=== PATIENT | female | born 1970 | race Caucasian/White ===

== ENCOUNTER → 2019-09-02 11:03 | Outpatient (CLI) | payer OTHER, SELFPAY ==
--- NOTE | 2019-09-01 11:17 | HP.PCM_ITS ---
History and Physical Date of Admission: 09/02/19 HISTORY AND PHYSICAL - BREAST COMPLAINT ? Luiza Zepeda 1970 ? ? REFERRING PHYSICIAN: ??Jeffry Posadas MD ? CHIEF COMPLAINT:???Abnormal right breast imaging ? HPI: The patient is a 49 year old female with a complaint of?an abnormal mammogram. ?The patient had a mammogram on August 14, 2019?which demonstrated: ? IMPRESSION: SUSPICIOUS FINDING - BIOPSY SHOULD BE CONSIDERED The grouped pleomorphic calcifications in the right breast are suspicious of malignancy. ?A stereotactic biopsy is recommended. ? There are a grouped pleomorphic calcifications in the right breast at 11 o'clock posterior depth. No other significant masses or calcifications are seen in the breast. ? The patient denies a history of breast masses. ?She does??perform a self breast exam routinely. ?She notes no skin changes. ?She denies nipple discharge. ?She notes no axillary masses. ?She notes no family history of breast problems. ?She notes no significant breast trauma or breast difficulties in the past. ? I performed a left side Stereotactic guided core biopsy for her abnormal mammogram on September 02, 2013. ?Biopsy was somewhat challenging due to the fact that the microcalcifications very superficial, the compression of the breast prevented advancing of the needle fully into the breast resulting in poor sampling and multiple skin biopsies. ?I was however confident needle was well centered on the area of the abnormality. ? ? The pathology returned as: ? ?Normal-appearing breast and skin with no atypical findings but also no microcalcifications ? ? ? The patient is being seen by me today at the request of ?for my opinion and advice regarding abnormal breast imaging-right breast microcalcifications.? ? PAST MEDICAL HISTORY PAST MEDICAL HISTORY Diagnosis Date ? Bunionette of left foot 03/09/2018 ? Bunionette of right foot 03/09/2018 ? Hallux valgus (acquired), unspecified foot 03/09/2018 ? Papanicolaou smear of cervix with atypical squamous cells of undetermined significance (ASC-US) 1999 ? Paps since normal ? Tinea unguium 03/09/2018 ? ? PAST SURGICAL HISTORY PAST SURGICAL HISTORY Procedure Laterality Date ? BX BREAST PERC VACUUM/ROTN ? 09/02/13 ? left breast ? PAST SURGICAL HISTORY OF ? ? ? WISDOM TEETH ? ? CURRENT MEDICATIONS Current Outpatient Medications Medication Sig Dispense Refill ? DAILY MULTIVITAMIN TAB Take one(1) tablet daily. ? 0 ? No current facility-administered medications for this visit.? ? ALLERGIES:?Amoxicillin ? PERSONAL HISTORY:? SOCIAL HISTORY Social History ? Tobacco Use ? Smoking status: Never Smoker ? Smokeless tobacco: Never Used Substance Use Topics ? Alcohol use: Yes ? ? Alcohol/week: 17.5 standard drinks ? ? Types: 7 Glasses of Wine (5oz) per week ? ? Comment: moderately ? Drug use: No ? FAMILY HISTORY:? FAMILY HISTORY FAMILY HISTORY Problem Relation Age of Onset ? Hypertension Mother ? ? Cancer Father ?Prostate Ca ? Stroke Maternal Grandmother ? ? Hypertension Maternal Grandmother ? ? Cancer Maternal Grandmother ?SKIN ? Heart Paternal Grandfather ? ? Diabetes Paternal Grandmother ? ? REVIEW OF SYMPTOMS: ??The review of systems data was entered by the nurse and reviewed by me ? Nursing Notes: Jordan Urena ?08/27/2019 ?4:23 PM ?Signed REVIEW OF SYSTEMS: ?General:???The patient denies fatigue, denies weight loss, denies weight gain, denies feeling hot, and denies feelings of cold. ?Eyes: ?The patient denies glaucoma, denies eye injury/surgery, does not wear glasses or contacts. ?Ear/Nose/Throat: ?The patient denies allergies, denies hayfever, denies ear infections, and denies bloody noses. ?Cardiovascular: ?The patient denies chest pain, denies heart disease, denies high blood pressure,denies cardiac stent, denies prior heart attack, denies irregular heart beat, denies high cholesterol, ?denies poor circulation, denies heart failure, other cardiac issues, denies claudication, denies cold feet, denies peripheral arterial stent. ?Respiratory: ?The patient denies tuberculosis, denies pneumonia, denies frequent cough, denies pulmonary embolism, denies shortness of breath, and denies coughing up blood. ?Gastrointestinal: ?The patient denies difficulty swallowing, denies acid reflux, denies ulcers, denies vomiting, denies jaundice/hepatitis, denies gallbladder problems, denies black or tarry stools, denies hemorrhoids, denies bleeding from rectum, denies diverticulitis, denies constipation, denies d iarrhea, denies loss of stool control, and denies hernias. ?Kidney/Bladder: ?The patient denies kidney stones, denies urine infections, and denies bloody urine. ?Skin: ?The patient denies a history of skin cancer, denies bleeding/changing moles, and denies a history of skin rash. ?Neurologic: ?The patient denies a history of epilepsy/convulsions, denies headaches, denies head/spinal injuries, and denies stroke/TIA. ?Psychiatric: ?The patient denies psychiatric medications, denies depression, and denies voices, denies substance abuse. ?Endocrine: ?The patient denies thyroid disorders, denies diabetes, and denies hormonal problems. ?Hematologic: ?The patient denies a history of bruising, denies bleeding, and denies anemia, denies blood clots. ?Infections: ?The patient denies a history of measles and mumps, denies rheumatic fever, and denies sexually transmitted diseases. ?Musculoskeletal: ?The patient denies back pain/injury, denies back problems, denies sciatica, denies knee/foot trouble, denies arthritis, or denies gout. ? ? When was patient's last Mammogram screening? 08-14-2019 ? ?Last Colonoscopy: ?NA ? Jordan Urena ? PHYSICAL EXAMINATION: ? General: ?The patient is 49 year old female, well nourished, well hydrated in no acute distress. ?The patient is oriented to time, place, and person. ? VITALS:?Blood pressure 102/54, pulse 71, temperature 36.2 ?C (97.2 ?F), temperature source Temporal Artery, resp. rate 14, height 172.7 cm (5' 8), weight 68.9 kg (152 lb), SpO2 100 %.?Body mass index is 23.11 kg/m?.? ? HEENT: ?Normal cephalic, ataumatic, pupils are equally round, sclera are anicteric, mucous membranes are moist, oropharynx is clear. ?Neck has no masses, asymmetry or lymphadenopathy. ?Thyroid is unremarkable. ? Respiratory: ?Clear to auscultation and percussion. ?Normal respiratory excursion and pattern. ? Cardiac: ?Examination is regular rate and rhythm. ? ? ? Breast: ?Visual inspection reveals no retractions, nipple inversion, or skin changes. ?Palpation of the right breast reveals no dominant or suspicious masses, but multiple benign-feeling nodules. ?Palpation of the left breast reveals no dominant or suspicious masses, but multiple benign-feeling nodules. ?Axillary exam demonstrates no suspicious masses in either the left or right axilla. ?There is no nipple discharge expressed from either the left or right breast. ? LABORATORY VALUES: As Noted ? RADIOLOGIC STUDIES: ?As Noted ? Assessment ? IMPRESSION:?abnormal breast imaging-right breast microcalcifications ? PLAN:??I plan to perform a?stereotactic biopsy of the right breast. ?The planned surgical procedure was discussed extensively with the patient. ?The risks, benefits, anticipated outcomes and possible complications were mentioned. ?My staff has also explained the procedure in understandable terms and the patient was given the option to take printed material concerning the planned procedure. ?The patient had the opportunity to ask questions concerning the planned procedure. ?The patient freely consents to the planned procedure. ? Diagnoses:?(R92.8) Abnormal finding on breast imaging ?(primary encounter diagnosis) ? Return to Clinic: The patient is instructed to follow-up with me?after the testing has been completed. ? Jeffry Posadas MD
--- NOTE | 2019-09-14 12:47 | PCM.OPRPT ---
Report of Operation Date of Procedure: 09/02/19 Pre-Operative Diagnosis: microcalcifications right breast Post-Operative Diagnosis: aborted biopsy right breast neck or calcifications Surgery/Procedure Performed:: aborted biopsy right breast consultation Specimen's removed: none Description of Procedure: The patient was brought to the stereotactic suite and informed of the plan course of events. The right breast was positioned in the CC approach on the [place] stereotactic table. Mammographic image demonstrated the area of abnormalityto be vague without clear clustering of the calcifications. Nothing the breast to multiple images failed to yield a clustered grouping in addition the calcifications were very superficial and the breast compressed very thin. Given these findings the stereotactic biopsy was aborted.
== END ==
PROVIDERS: Referring Provider Surgery; Visit Provider Surgery
DX: Z53.8 Procedure and treatment not carried out for other reasons (principal); R92.0 Mammographic microcalcification found on diagnostic imaging of breast
CPT/HCPCS: 19081

== ENCOUNTER → 2022-11-24 | Outpatient (CLI) | payer OTHER, SELFPAY ==
[2022-11-24 14:04] LABS: Free T3 2.5 pg/mL (2.18-3.98); T4 Free Direct 0.83 ng/dL (0.76-1.46); Thyroid Stim Hormone (TSH) 2.84 uIU/mL (0.358-3.74)
== END | disposition home or self-care (01) ==
PROVIDERS: PCP Student in an Organized Health Care Education/Training Program; Referring Provider Student in an Organized Health Care Education/Training Program; Visit Provider Student in an Organized Health Care Education/Training Program
DX: E03.9 Hypothyroidism, unspecified (principal)
CPT/HCPCS: 36415; 84439; 84443; 84481

== ENCOUNTER → 2023-10-25 | Outpatient (CLI) | payer OTHER, SELFPAY ==
--- NOTE | 2023-10-25 13:51 | US_ITS ---
INDICATION: THYROID NODULE EXAMINATION: Ultrasound US Thyroid (eg thyroid, parathyroid, parotid) TECHNIQUE: Denny scale and color doppler imaging was performed of the thyroid gland. COMPARISON: FINDINGS: RIGHT THYROID LOBE: 5.1 x 1.7 x 1.7 cm. Heterogeneous echotexture with increased vascularity. [No thyroid nodules are present. LEFT THYROID LOBE: 4.9 x 1.6 x 1.6 cm. Heterogeneous echotexture with increased vascularity. [No thyroid nodules are present. ISTHMUS: 2 mm. No thyroid nodules are present. US/Thyroid IMPRESSION: Heterogeneous thyroid lobes without discrete lesion. Electronically Signed: Nehemias Mchugh DO at 16:25 EST Reading Location ID and State: [facility] / [place] Tel [phone], Service support ,
--- OUTSIDE RECORDS SUMMARY | 2023-10-25 14:36 | XMS RPT_ITS | CCD ---
Author Name Unknown Address [address] [place] [address] Organization [facility] Care Team Providers Care Project Construction Assistant Manager Name Role Phone Unavailable Primary Care Provider Unavailabl e HORN, SOUMYA DPM Primary Care Unavailable HORN, SOUMYA DPM Attending Unavailable HORN, SOUMYA DPM Admitting Unavailable ROSE MARIE BRANDON DO Consulting Unavailable PROVIDER, UNKNOWN Consulting Unavailable PROVIDER, UNKNOWN Consulting Unavailable ROSE MARIE BRANDON DO Consulting Unavailable UNGERER, NANCI BUSINESS DEVELOPMENT INTERN Primary Care Unavailable UNGERER, NANCI BUSINESS DEVELOPMENT INTERN Attending Unavailable UNGERER, NANCI BUSINESS DEVELOPMENT INTERN Admitting Unavailable PROVIDER, UNKNOWN Consulting Unavailable PROVIDER, UNKNOWN Consulting Unavailable HORN, SOUMYA DPM Admitting Unavailable HORN, SOUMYA DPM Primary Care Unavailable HORN, SOUMYA DPM Attending Unavailable ROSE MARIE BRANDON DO Consulting Unavailable PROVIDER, UNKNOWN Consulting Unavailable PROVIDER, UNKNOWN Consulting Unavailable HORN, SOUMYA DPM Admitting Unavailable HORN, SOUMYA DPM Primary Care Unavailable HORN, SOUMYA DPM Attending Unavailable ROSE MARIE BRANDON DO Consulting Unavailable PROVIDER, UNKNOWN Consulting Unavailable PROVIDER, UNKNOWN Consulting Unavailable HORN, SOUMYA DPM Admitting Unavailable HORN, SOUMYA DPM Primary Care Unavailable HORN, SOUMYA DPM Attending Unavailable ROSE MARIE BRANDON DO Consulting Unavailable PROVIDER, UNKNOWN Consulting Unavailable PROVIDER, UNKNOWN Consulting Unavailable ROSE MARIE BRANDON DO Consulting Unavailable UNGERER, NANCI BUSINESS DEVELOPMENT INTERN Primary Care Unavailable UNGERER, NANCI BUSINESS DEVELOPMENT INTERN Attending Unavailable UNGERER, NANCI BUSINESS DEVELOPMENT INTERN Admitting Unavailable PROVIDER, UNKNOWN Consulting Unavailable PROVIDER, UNKNOWN Consulting Unavailable ROSE MARIE BRANDON DO Consulting Unavailable PAIGE ASCENCIO Primary Care Unavailable PAIGE ASCENCIO Attending Unavailable PAIGE ASCENCIO Admitting Unavailable PROVIDER, UNKNOWN Consulting Unavailable PROVIDER, UNKNOWN Consulting Unavailable Wai Velazquez Primary Care Provider Unavail able Wai Velazquez DO Primary Care Provider Wai Velazquez Primary Care Provider Unavail able WAI VELAZQUEZ Referring Unavailable VELAZQUEZWAI Primary Care Unavailable LISE DOWNEY Attending Unavailable KIRA NORTON Attending Unavailable VELAZQUEZWAI Referring Unavailable VELAZQUEZWAI Primary Care Unavailable WIA VELAZQUEZ Primary Care Unavailable VELAZQUEZWAI GARNETT Primary Care Unavailable VASQUEZIDRE Referring Unavail able WAI VELAZQUEZ Primary Care Unavailable NICOLE JEAN Attending Unavail able VELAZQUEZWAI GARNETT Primary Care Unavailable BENITEZ DAUGHERTY NICOLE Attending Unavail able Allergies Allergy Classification Reported Allergen(s) Allergy Type Date of Onset Reaction(s) Facility (17 sources) Amoxicillin; Translations: [AMOXICILLIN] Drug Allergy 12-17-2008 [facility] Work Phone: Medications Completed/Discontinued Medications Medication Drug Class(es) Dates Sig (Normalized) Sig (Original) ascorbic acid 250 mg oral tablet (14 sources) Vitamin C take 1 tablet by wes th once daily ascorbic acid, vitamin C, (VITAMIN C) 250 mg tablet Take 250 mg by mouth once daily. 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] Onset: 06-06-2022 Chronic Diseases of mouth; excluding dental (1 source) Other diseases of tongue; Translations: [Other specified conditions of the tongue] Episodic Essential hypertension (1 source) Essential (primary) hypertension; Translations: [Essential (primary) hypertension] Onset: 11-26-2021 Chronic Immunizations and screening for infectious disease (1 source) Patient encounter status; Translations: [Encounter for immunization] Episodic Inflammatory diseases of female pelvic organs (1 source) Acute vulvitis; Translations: [Acute vulvitis] Episodic Other female genital disorders (1 source) Vaginal discharge; Translations: [Other specified noninflammatory disorders of vagina] Episodic Other female genital disorders (1 source) Lesion of vulva; Translations: [Other specified noninflammatory disorders of vulva and perineum] 07-26-2023 Episodic Other nervous system disorders (3 sources) Lesion of plantar nerve, right lower limb; Translations: [Lesion of plantar nerve, right lower limb] Onset: 11-26-2021 Chronic Other screening for suspected conditions (not mental disorders or infectious disease) (20 sources) Mammography abnormal; Translations: [Other abnormal and inconclusive findings on diagnostic imaging of breast] Onset: 08-29-2013 08-29-2013 Episodic Other skin disorders (2 sources) Lichen sclerosus et atrophicus; 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 Thyroid disorders (19 sources) Hypothyroidism, unspecified; Translations: [Acquired hypothyroidism] Onset: 07-19-2022 Chronic Past or Other Problems Problem Classification Problem Date Documented Da te Episodic/Chronic Other skin disorders (15 sources) Tongue swelling; Translations: [Localized swelling, mass and lump, head] Onset: 09-09-2022 Episodic Results Test Name Value Interpretation Reference Range Facil ity Vital Signs Date Time Vital Sign Value Performing Clinician Faci lity 09-05-2023 14:17-0500 Body height 174 cm Nicole Daugherty MD Work Phone: [facility] 09-05-2023 14:17-0500 Body weight 69.4 kg Nicole Daugherty MD Work Phone: [facility] 09-05-2023 14:17-0500 Diastolic blood pressure 60 mm[Hg] Nicole Daugherty MD Work Phone: [facility] 09-05-2023 14:17-0500 Systolic blood pressure 104 mm[Hg] Nicole Daugherty MD Work Phone: [facility] 07-26-2023 11:41-0400 Body weight 69.4 kg Nicole Daugherty MD Work Phone: [facility] 07-26-2023 11:41-0400 Diastolic blood pressure 64 mm[Hg] Nicole Daugherty MD Work Phone: [facility] 07-26-2023 11:41-0400 Systolic blood pressure 106 mm[Hg] Nicole Daugherty MD Work Phone: [facility] 09-09-2022 07:49-0500 Body height 174 cm Wai Velazquez DO Work Phone: [facility] 09-09-2022 07:49-0500 Body temperature 97.3 [degF] Wai Velazquez DO Work Phone: [facility] 09-09-2022 07:49-0500 Body weight 68.49 kg Wai Velazquez DO Work Phone: [facility] 09-09-2022 07:49-0500 Diastolic blood pressure 60 mm[Hg] Wai Velazquez DO Work Phone: [facility] 09-09-2022 07:49-0500 Heart rate 64 /min Wai Velazquez DO Work Phone: [facility] 09-09-2022 07:49-0500 Respiratory rate 16 /min Wai Velazquez DO Work Phone: [facility] 09-09-2022 07:49-0500 Systolic blood pressure 90 mm[Hg] Wai Velazquez DO Work Phone: [facility] 06-28-2022 08:18-0400 Body height 174 cm Nicole Daugherty MD Work Phone: [facility] 06-28-2022 08:18-0400 Body weight 70.76 kg Nicole Daugherty MD Work Phone: [facility] 06-28-2022 08:18-0400 Diastolic blood pressure 62 mm[Hg] Nicole Daugherty MD Work Phone: [facility] 06-28-2022 08:18-0400 Systolic blood pressure 100 mm[Hg] Nicole Daugherty MD Work Phone: [facility] 05-24-2022 10:22-0400 Body temperature 97.81 [degF] Nanci Veliz APRN.CNP Work Phone: [facility] 05-24-2022 10:22-0400 Body weight 69.85 kg Nanci Veliz O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 Work Phone: [facility] 05-24-2022 10:22-0400 Diastolic blood pressure 62 mm[Hg] Nanci Veliz O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 Work Phone: [facility] 05-24-2022 10:22-0400 Heart rate 60 /min Nanci Veliz O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 Work Phone: [facility] 05-24-2022 10:22-0400 Respiratory rate 16 /min Nanci Veliz O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 Work Phone: [facility] 05-24-2022 10:[id number] SaO2% (BldA) [Mass fraction] 99 % Nanci Veliz O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 Work Phone: [facility] 05-24-2022 10:22-0400 Systolic blood pressure 100 mm[Hg] Nanci Veliz O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 Work Phone: [facility] Encounters Encounter Date Encounter Type Care Provider Facility Start: 10-16-2023 End: 10-16-2023 ambulatory WAI VELAZQUEZ Facility:[facility] Start: 09-05-2023 End: 09-05-2023 ambulatory WAI VELAZQUEZ Facility:[facility] Start: 09-05-2023 End: 09-05-2023 Patient encounter procedure Nicole Daugherty MD Work Phone: OB/Gynecology Procedures Date Procedure Procedure Detail Performing Clinician Start: 12-02-2022 Colonoscopy Wai garnett DO Work Phone: Start: 10-17-2022 Dxa bone density delta dy 1/> sites axial skel Wai Pooleon DO Work Phone: Start: 10-13-2022 FRANK SCREENING W TABITHA Barraza MD Work Phone: Start: 10-13-2022 Us soft tissue head & neck real time imge docm Wai Pooleon DO Work Phone: Start: 10-13-2022 Mammography Mammograph y Coordinator Start: 06-06-2022 Lipid panel [facility] Provid er Start: 06-06-2022 Lipid 1996 panel - S owen or Plasma Nicole Daugherty MD Work Phone: Start: 06-16-2020 Glucose [Mass/volume ] in Serum or Plasma [facility] Provider Start: 05-17-2019 Mammography Nanci block O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 Work Phone: Plan of Treatment Date Care Activity Detail Author Start: 12-02-2032 Colonoscopy COLONOSCOPY [facility] Start: 12-02-2032 COLORECTAL CANCER SCREENING COLORECTAL CANCER SCREENING [facility] Start: 12-02-2032 Screening for malign ant neoplasm of colon [facility] Start: 09-05-2027 HPV TESTING HPV TESTING [facility] Start: 09-05-2027 PAP TESTING PAP TESTING [facility] Start: 09-05-2027 Screening for malign ant neoplasm of cervix [facility] Start: 06-06-2027 Lipid 1996 panel - Serum or Plasma Lipid Screening [facility] Start: 06-06-2027 Lipid panel Lipid Screening [facility] Start: 06-06-2027 LIPID SCREEN LIPID SCREEN [facility] Start: 10-17-2023 End: 11-16-2023 Us soft tissue head & neck real time imge docm US THYROID/PARATHYROID Radiology Routine Left thyroid nodule Expected: 10/17/2023, Expires: 11/16/2023 [facility] Work Phone: Immunizations Immunization Date Immunization Notes Care Provider Maddy sauer 11-24-2022 zoster vaccine recombinant Mi Nurse Work Phone: [facility] Work Phone: 09-09-2022 zoster vaccine recombinant Wai Velazquez DO Work Phone: [facility] Work Phone: 07-09-2020 influenza virus vaccine, unspecified formulation Nanci Veliz O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 Work Phone: [facility] Work Phone: 07-16-2019 influenza virus vaccine, unspecified formulation Nanci Veliz O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 Work Phone: [facility] Work Phone: 08-21-2013 tetanus toxoid, redu javier diphtheria toxoid, and acellular pertussis vaccine, adsorbed Nanciangeline Veliz O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 Work Phone: [facility] 08-10-2013 influenza virus vaccine, unspecified formulation Nanci Veliz O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 Work Phone: [facility] Payers Date Payer Category Payer Unknown [id number] 2021 Unknown [employer] PPO [id number] 2021-Present [phone] [address] [place] [address] PPO [id number] 2021 Unknown [id number] 1970 Unknown [id number] 1969 Unknown [id number] 1969 Unknown [id number] 1969 Unknown [id number] 1969 Unknown [id number] 1969 Unknown [id number] 1969 Unknown [id number] Unknown [id number] Social History Date Type Detail Facility Start: 05-24-2022 Tobacco smoking status NHIS Never smoked tobacco [facility] Work Phone: Start: 05-24-2022 Tobacco use and exposure Smokeless tobacco non-user [facility] Work Phone: Start: 05-24-2022 End: 09-09-2022 Alcohol intake Current drinker of alcohol (finding) [facility] Start: 05-24-2022 End: 06-15-2023 Alcohol intake [facility] Start: 1970 Sex Assigned At Female [facility] Start: 05-14-2022 End: 05-24-2022 Exposure to SARS-CoV-2 (event) Not sure [facility] Start: 09-08-2022 History SDOH Alcohol Frequency 4 [facility] Start: 09-08-2022 History SDOH Alcohol Std Drinks 1 [facility] Start: 09-08-2022 History SDOH Social Connections Get Together 3 [facility] Start: 09-08-2022 History SDOH Financial 5 [facility] Start: 09-08-2022 History SDOH Transport Med 2 [facility] Start: 01-16-2023 End: 09-05-2023 Alcohol intake Ex-drinker (finding) [facility] Start: 12-02-2022 Alcohol Comment 4 drinks per week [facility] Start: 09-08-2022 End: 06-15-2023 Social connection and isolation panel [facility] Do you belong to any clubs or organizations such as quaker groups, unions, fraternal or athletic groups, or school groups? Yes [facility] Are you now , , , , never or living with a partner? [facility] How often to you hav e a drink containing alcohol? 2-3 time sa week [facility] How many standard dr inks containing alcohol do you have on a typical day? 1 or 2 [facility] How often do you hav e 6 or more drinks on 1 occasion? Never [facility] How hard is it for y ou to pay for the very basics like food, housing, medical care, and heating Not hard at all [facility] Do you feel stress - tense, restless, nervous, or anxious, or unable to sleep at night because your mind is troubled all the time - these days [OSQ] Not at all [facility] (I/We) worried wheth er (my/our) food would run out before (I/we) got money to buy more. Never true [facility] In the past 12 month s, was there a time when you were not able to pay the mortgage or rent on time? No [facility] Start: 05-14-2019 Gender identity Identifies as female gender (finding) [facility] Start: 05-14-2019 Sexual orientation Heterosexual (finding) [facility] Clinical Notes 02-10-2022 to 10-16-2023 Nicole Jean MD - 09/05/2023 2:13 PM Nicole Rosales MD - 07/26/2023 11:39 AM EDTTelephone Encounter - Taryn Landry [facility] - 03/07/2023 8:42 AM EDTPatient Instructions Note Date & Type Note Facility 10-16-2023 Note HNO ID: [id number] Author: ROLAND SHEIKH Mammo Tech Service: ? Author Type: Executive Personal Assistant Type: Progress Notes Filed: 10/16/2023 09:20 Note Text: Radiology Service Progress Note PATIENT NAME: Luiza Horton DATE OF SERVICE: October 16, 2023 TIME: 9:02 AM PATIENT IDENTITY VERIFICATION COMPLETED USING TWO (2) IDENTIFIERS: Name and Date of confirmed by patient verbally. FALL SCREENING: Has the patient had 2 falls in the last year or 1 fall with injury or currently using an Ambulatory Assistive Device (Walker, Cane, Wheelchair, Crutches, etc.)? No PATIENT GENDER DATA: Female. status: : No status: NO. PATIENT RELEVANT IMPLANT DATA REVIEWED: Not Applicable RADIOLOGY DEPARTMENT: Mammography PERIPHERAL IV DATA: Not applicable SIGNED BY: Guy Avila October 16, 2023 9:02 AM [facility] 09-05-2023 Note HNO ID: [id number] Author: Nicole Jean MD Service: ? Author Type: Physician Type: Progress Notes Filed: 09/05/2023 2:41 PM Note Text: Bottle And Glass Inspector offered: Patient declines. Luiza is a 53 year old who presents for an annual gynecologic exam without complaints. Doing well with clobetasol- improvement in tissue- inflammation. Postmenopausal: Yes HRT use: No. Last Pap: 09/08/2022 normal HPV: 09/08/2022 negative History of abnormal pap: No Last mammogram: 2022 normal History of abnormal mammogram: No Sexually active: Yes History of STDS: None Patient concerns for STD exposure: No. Pain with intercourse: No Postcoital bleeding: No Exercise: routine Diet: balanced 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 History Comments: Sexual Activity: Yes; Male Contraception: Vasectomy PAST MEDICAL HISTORY Diagnosis Date Bunionette of left foot 03/09/2018 Bunionette of right foot 03/09/2018 Hallux valgus (acquired), unspecified foot 03/09/2018 Hypothyroidism Papanicolaou smear of cervix with atypical squamous cells of undetermined significance (ASC-US) 2000 Paps since normal Tinea unguium 03/09/2018 PAST SURGICAL HISTORY Procedure Laterality Date BX BREAST PERC VACUUM/ROTN 09/02/2013 left breast COLONOSCOPY 12/02/2022 repeat in 10 years FOOT SURGERY HX Right 10/2021 PAST SURGICAL HISTORY OF WISDOM TEETH SKIN BIOPSY HX FAMILY HISTORY Problem Relation Age of Onset Hypertension Mother Cancer Father Prostate Ca Diabetes Father Stroke Maternal Grandmother Hypertension Maternal Grandmother Cancer Maternal Grandmother SKIN Diabetes Paternal Grandmother Heart Paternal Grandfather SOCIAL HISTORY Social History Tobacco Use Smoking status: Never Smokeless tobacco: Never Vaping Use Vaping Use: Never used Substance Use Topics Alcohol use: Not Currently Comment: 4 drinks per week Drug use: No REVIEW OF SYSTEMS Abdomen: No abdominal pain, nausea, vomiting, diarrhea, or constipation. No bloating, early satiety, indigestion, or increased flatulence. Bladder: No dysuria, gross hematuria, urinary frequency, urinary urgency, or incontinence Breast: No breast lumps, nipple d/c, overlying skin changes, redness or skin retraction Allergies and current medication updated:Yes EXAM: BP 104/60 Ht 5' 8.5 (1.74m) Wt 153 lb (69.4kg) LMP 01/24/2019 BMI 22.92 kg/(m2). GENERAL: pleasant, female in no apparent distress HEENT: Normocephalic, atraumatic, mucus membranes moist, and no lesions NECK: Supple, full range of motion, no adenopathy, and thyroid normal DERMATOLOGY: Normal, without lesions, non-icteric, and non-hirsute BREAST: soft, non-tender, symmetric, no dominant mass, normal nipple-areolar complex, no lymphadenopathy, and no nipple discharge ABDOMEN: soft, non-tender, and no masses PELVIC: external genitalia normal, normal Bartholin's glands, urethra, Pisek's glands, no vulvar lesions, no cervical lesions, good vaginal support, physiologic discharge present- area of ulceration healed- minimal erythema on right labia posterior fourchette- BIMANUAL: uterus normal size, shape and consistency, no adnexal masses, and non-tender RECTOVAGINAL: deferred. NEURO: alert and oriented x3,exam grossly non-focal EXTREMITIES: normal ASSESSMENT/PLAN: 1) Health maintenance: Pap/HPV up to date. Mammogram ordered Mammogram up to date Nutrition, exercise and routine health maintenance exams reviewed. Colon cancer screening: up to date with screening 2) Follow up one year or sooner as needed 3) reviewed proper use of clobetasol- reviewed vulvar hygiene Nicole Moya MD [facility] 09-05-2023 History of Present illness Narrative Bottle And Glass Inspector offered: Patient declines. Luiza is a 53 year old who presents for an annual gynecologic exam without complaints. Doing well with clobetasol- improvement in tissue- inflammation. Postmenopausal: Yes HRT use: No. Last Pap: 09/08/2022 normal HPV: 09/08/2022 negative History of abnormal pap: No Last mammogram: 2022 normal History of abnormal mammogram: No Sexually active: Yes History of STDS: None Patient concerns for STD exposure: No. Pain with intercourse: No Postcoital bleeding: No Exercise: routine Diet: balanced 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 History Comments: Sexual Activity: Yes; Male Contraception: Vasectomy PAST MEDICAL HISTORY Diagnosis Date Bunionette of left foot 03/09/2018 Bunionette of right foot 03/09/2018 Hallux valgus (acquired), unspecified foot 03/09/2018 Hypothyroidism Papanicolaou smear of cervix with atypical squamous cells of undetermined significance (ASC-US) 1999 Paps since normal Tinea unguium 03/09/2018 PAST SURGICAL HISTORY Procedure Laterality Date BX BREAST PERC VACUUM/ROTN 09/02/2013 left breast COLONOSCOPY 12/02/2022 repeat in 10 years FOOT SURGERY HX Right 10/2021 PAST SURGICAL HISTORY OF WISDOM TEETH SKIN BIOPSY HX FAMILY HISTORY Problem Relation Age of Onset Hypertension Mother Cancer Father Prostate Ca Diabetes Father Stroke Maternal Grandmother Hypertension Maternal Grandmother Cancer Maternal Grandmother SKIN Diabetes Paternal Grandmother Heart Paternal Grandfather SOCIAL HISTORY Social History Tobacco Use Smoking status: Never Smokeless tobacco: Never Vaping Use Vaping Use: Never used Substance Use Topics Alcohol use: Not Currently Comment: 4 drinks per week Drug use: No REVIEW OF SYSTEMS Abdomen: No abdominal pain, nausea, vomiting, diarrhea, or constipation. No bloating, early satiety, indigestion, or increased flatulence. Bladder: No dysuria, gross hematuria, urinary frequency, urinary urgency, or incontinence Breast: No breast lumps, nipple d/c, overlying skin changes, redness or skin retraction Allergies and current medication updated:Yes EXAM: BP 104/60 Ht 5' 8.5 (1.74m) Wt 153 lb (69.4kg) LMP 01/24/2019 BMI 22.92 kg/(m^2). GENERAL: pleasant, female in no apparent distress HEENT: Normocephalic, atraumatic, mucus membranes moist, and no lesions NECK: Supple, full range of motion, no adenopathy, and thyroid normal DERMATOLOGY: Normal, without lesions, non-icteric, and non-hirsute BREAST: soft, non-tender, symmetric, no dominant mass, normal nipple-areolar complex, no lymphadenopathy, and no nipple discharge ABDOMEN: soft, non-tender, and no masses PELVIC: external genitalia normal, normal Bartholin's glands, urethra, Pisek's glands, no vulvar lesions, no cervical lesions, good vaginal support, physiologic discharge present- area of ulceration healed- minimal erythema on right labia posterior fourchette- BIMANUAL: uterus normal size, shape and consistency, no adnexal masses, and non-tender RECTOVAGINAL: deferred. NEURO: alert and oriented x3,exam grossly non-focal EXTREMITIES: normal ASSESSMENT/PLAN: 1) Health maintenance: Pap/HPV up to date. Mammogram ordered Mammogram up to date Nutrition, exercise and routine health maintenance exams reviewed. Colon cancer screening: up to date with screening 2) Follow up one year or sooner as needed 3) reviewed proper use of clobetasol- reviewed vulvar hygiene Nicole Moya MD documented in this encounter [facility] 07-26-2023 Note HNO ID: [id number] Author: Nicole Jean MD Service: ? Author Type: Physician Type: Progress Notes Filed: 07/26/2023 12:57 PM Note Text: Bottle And Glass Inspector offered: Patient declines. Luiza Horton is a 53 year old female who presents for follow-up discomfort. Patient was recently seen in May after having vulvar erythema and pain for several months after vacation in March. In June 2022 she was diagnosed with lichen sclerosis was given clobetasol and the discomfort resolved. She reports that she was using the clobetasol as needed or once weekly but in March she went on vacation to [place] and did not use it for a few weeks. She states during that vacation she was sitting a lot and doing a lot of activities and it was irritated upon her return. She states that he has been using the clobetasol but nothing seems to make it better. She states that she is not using any irritating soaps or detergents. Patient offers no other concerns at this time. 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 History Comments: Sexual Activity: Yes; Male Contraception: Vasectomy PAST MEDICAL HISTORY Diagnosis Date Bunionette of left foot 03/09/2018 Bunionette of right foot 03/09/2018 Hallux valgus (acquired), unspecified foot 03/09/2018 Hypothyroidism Papanicolaou smear of cervix with atypical squamous cells of undetermined significance (ASC-US) 2000 Paps since normal Tinea unguium 03/09/2018 PAST SURGICAL HISTORY Procedure Laterality Date BX BREAST PERC VACUUM/ROTN 09/02/2013 left breast COLONOSCOPY 12/02/2022 repeat in 10 years FOOT SURGERY HX Right 10/2021 PAST SURGICAL HISTORY OF WISDOM TEETH SKIN BIOPSY HX FAMILY HISTORY Problem Relation Age of Onset Hypertension Mother Cancer Father Prostate Ca Diabetes Father Stroke Maternal Grandmother Hypertension Maternal Grandmother Cancer Maternal Grandmother SKIN Diabetes Paternal Grandmother Heart Paternal Grandfather Social History Tobacco Use Smoking status: Never Smokeless tobacco: Never Vaping Use Vaping Use: Never used Substance Use Topics Alcohol use: Not Currently Comment: 4 drinks per week Drug use: No Current Outpatient Medications Medication Sig Lactobacillus acidophilus (PROBIOTIC ORAL) Take by mouth. salmon oil/omega-3 fatty acids (SALMON OIL-1000 ORAL) Take by mouth. levothyroxine (LEVOXYL) 75 mcg tablet Take 1 tablet by mouth once daily. Take on empty stomach. For thyroid. fluconazole (DIFLUCAN) 100 mg tablet ascorbic acid, vitamin C, (VITAMIN C) 250 mg tablet Take 250 mg by mouth once daily. (Patient not taking: Reported on 06/15/2023) vit B complex no.12/niacin,B3, (VITAMIN B COMPLEX NO.12-NIACIN ORAL) Take by mouth. cholecalciferol (VITAMIN D3) 5,000 unit tab Take 5,000 Units by mouth once daily. (Patient not taking: Reported on 06/15/2023) clobetasol (TEMOVATE) 0.05 % ointment Apply 1 application to affected area twice daily. TO AFFECTED AREA. DAILY MULTIVITAMIN TAB Take one(1) tablet daily. (Patient not taking: Reported on 06/15/2023) No current facility-administered medications for this visit. Allergies As of Date: 07/26/2023 Allergen Noted Reaction AMOXICILLIN 12/17/2008 Rash Fully Assessed 06/15/2023 REVIEW OF SYSTEMS Abdomen: no pain Bladder: no dysuria .. Allergies and current medication updated:Yes EXAM: BP 106/64 Wt 153 lb (69.4kg) LMP 01/24/2019 GENERAL: pleasant, female in no apparent distress HEENT: Normocephalic and atraumatic NECK: full range of motion DERMATOLOGY: Normal and without lesions PELVIC: Labial agglutination appreciated. There is an area of hypopigmentation of the posterior fourchette. Moderate erythema extending up both labia majora at the introitus. Erythema extending around to the anus in an elliptical fashion. There is an area of hypopigmentation appears slightly ulcerated at 3:00 on the labia majora on the left. Patient was shown in the mirror of the affected tissue she reports she was not placing ointment on the proper location. BIMANUAL: NEURO: alert and oriented x3,exam grossly non-focal EXTREMITIES: normal ASSESSMENT AND PLAN: Encounter Diagnosis ICD-10-CM 1. Vulvar dermatitis L30.9 2. Vulvar lesion N90.89 SURGICAL PATHOLOGY 3. Discussed with the patient that this does appear to be lichen sclerosis but recommend vulvar biopsy at this time. Patient was agreeable. 4. Clobetasol use BID x 6 weeks 5. RTO 6 weeks Medical Decision Making: Problems: Moderate: 1+ chronic illnesses with change Data: Unique test(s) ordered: 1 Risk: Moderate: Moderate risk from testing/treatment Medical Decision Making Level: 4 - Moderate Nicole Moya MD Luiza Horton is a 53 year old female who presents today for a vulvar biopsy. Indicat (more content not included)... 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 Luiza Horton is a 53 year old female who presents for follow-up discomfort. Patient was recently seen in May after having vulvar erythema and pain for several months after vacation in March. In June 2022 she was diagnosed with lichen sclerosis was given clobetasol and the discomfort resolved. She reports that she was using the clobetasol as needed or once weekly but in March she went on vacation to [place] and did not use it for a few weeks. She states during that vacation she was sitting a lot and doing a lot of activities and it was irritated upon her return. She states that he has been using the clobetasol but nothing seems to make it better. She states that she is not using any irritating soaps or detergents. Patient offers no other concerns at this time. 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 History Comments: Sexual Activity: Yes; Male Contraception: Vasectomy PAST MEDICAL HISTORY Diagnosis Date Bunionette of left foot 03/09/2018 Bunionette of right foot 03/09/2018 Hallux valgus (acquired), unspecified foot 03/09/2018 Hypothyroidism Papanicolaou smear of cervix with atypical squamous cells of undetermined significance (ASC-US) 2000 Paps since normal Tinea unguium 03/09/2018 PAST SURGICAL HISTORY Procedure Laterality Date BX BREAST PERC VACUUM/ROTN 09/02/2013 left breast COLONOSCOPY 12/02/2022 repeat in 10 years FOOT SURGERY HX Right 10/2021 PAST SURGICAL HISTORY OF WISDOM TEETH SKIN BIOPSY HX FAMILY HISTORY Problem Relation Age of Onset Hypertension Mother Cancer Father Prostate Ca Diabetes Father Stroke Maternal Grandmother Hypertension Maternal Grandmother Cancer Maternal Grandmother SKIN Diabetes Paternal Grandmother Heart Paternal Grandfather Social History Tobacco Use Smoking status: Never Smokeless tobacco: Never Vaping Use Vaping Use: Never used Substance Use Topics Alcohol use: Not Currently Comment: 4 drinks per week Drug use: No Current Outpatient Medications Medication Sig Lactobacillus acidophilus (PROBIOTIC ORAL) Take by mouth. salmon oil/omega-3 fatty acids (SALMON OIL-1000 ORAL) Take by mouth. levothyroxine (LEVOXYL) 75 mcg tablet Take 1 tablet by mouth once daily. Take on empty stomach. For thyroid. fluconazole (DIFLUCAN) 100 mg tablet ascorbic acid, vitamin C, (VITAMIN C) 250 mg tablet Take 250 mg by mouth once daily. (Patient not taking: Reported on 06/15/2023) vit B complex no.12/niacin,B3, (VITAMIN B COMPLEX NO.12-NIACIN ORAL) Take by mouth. cholecalciferol (VITAMIN D3) 5,000 unit tab Take 5,000 Units by mouth once daily. (Patient not taking: Reported on 06/15/2023) clobetasol (TEMOVATE) 0.05 % ointment Apply 1 application to affected area twice daily. TO AFFECTED AREA. DAILY MULTIVITAMIN TAB Take one(1) tablet daily. (Patient not taking: Reported on 06/15/2023) No current facility-administered medications for this visit. Allergies As of Date: 07/26/2023 Allergen Noted Reaction AMOXICILLIN 12/17/2008 Rash Fully Assessed 06/15/2023 REVIEW OF SYSTEMS Abdomen: no pain Bladder: no dysuria .. Allergies and current medication updated:Yes EXAM: BP 106/64 Wt 153 lb (69.4kg) LMP 01/24/2019 GENERAL: pleasant, female in no apparent distress HEENT: Normocephalic and atraumatic NECK: full range of motion DERMATOLOGY: Normal and without lesions PELVIC: Labial agglutination appreciated. There is an area of hypopigmentation of the posterior fourchette. Moderate erythema extending up both labia majora at the introitus. Erythema extending around to the anus in an elliptical fashion. There is an area of hypopigmentation appears slightly ulcerated at 3:00 on the labia majora on the left. Patient was shown in the mirror of the affected tissue she reports she was not placing ointment on the proper location. BIMANUAL: NEURO: alert and oriented x3,exam grossly non-focal EXTREMITIES: normal ASSESSMENT AND PLAN: Encounter Diagnosis ICD-10-CM 1. Vulvar dermatitis L30.9 2. Vulvar lesion N90.89 SURGICAL PATHOLOGY 3. Discussed with the patient that this does appear to be lichen sclerosis but recommend vulvar biopsy at this time. Patient was agreeable. 4. Clobetasol use BID x 6 weeks 5. RTO 6 weeks Medical Decision Making: Problems: Moderate: 1+ chronic illnesses with change Data: Unique test(s) ordered: 1 Risk: Moderate: Moderate risk from testing/treatment Medical Decision Making Level: 4 - Moderate Nicole Moya MD Luiza Horton is a 53 year old female who presents today for a vulvar biopsy. Indication: persistent vulvar irritation/dermatitis - vulvar lesion. UNIVERSAL PROTOCOL / SAFETY CHECKLIST Procedure to be Performed: Vulvar biopsy Sign In: A Moment of CARE was completed. Personnel directly involved with the procedure wore the appropriate PPE (Personal Protective Equipment). Patient/Surrogate Stated/Verified: PATIENT VERIFIED(optional for EMERGENT procedures): Patient name, Date of , Relevant allergies, and The intended procedure Time Out Communication: Intended patient and procedure match the source documents. Consent documented and matches the intended procedure. Sign Out: SIGN OUT (optional for EMERGENT procedures): All specimen containers correctly labeled. Nicole Moya MD PROCEDURE NOTE: GROSS LESIONS: Yes, see note above. - 3:00 on left labia majora BIOPSY: Area was cleansed with betadine and anesthetized with 2 mL 1% lidocaine with 1:100,000 epi. 4 mm [place] punch used to biopsy region. HEMOSTASIS: Obtained with silver nitrate Procedure Summary: Patient tolerated procedure well. ASSESSMENT: Vulvar dermatitis , vulvar lesion PLAN: Specimens labeled and sent to Pathology. Will notify patient of results in 1-2 weeks. Nicole Moya MD documented in this encounter [facility] 06-15-2023 Note HNO ID: [id number] Author: Lise Downey MD Service: ? Author Type: Physician Type: Progress Notes Filed: 06/23/2023 1:48 PM Note Text: Bottle And Glass Inspector offered: Patient declines. Luiza Horton is a 53 year old female who presents for problem visit. HPI: Here for vulvar erythema and vaginal pain for several months. She has a generalized discomfort in the vaginal area with external pruritis. No vaginal bleeding. Some dryness and discomfort with intercourse. Using the clobetasol once a week to every other week. Not using it consistently. 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 History Comments: Sexual Activity: Yes; Male Contraception: Vasectomy PAST MEDICAL HISTORY Diagnosis Date Bunionette of left foot 03/09/2018 Bunionette of right foot 03/09/2018 Hallux valgus (acquired), unspecified foot 03/09/2018 Hypothyroidism Papanicolaou smear of cervix with atypical squamous cells of undetermined significance (ASC-US) 2000 Paps since normal Tinea unguium 03/09/2018 PAST SURGICAL HISTORY Procedure Laterality Date BX BREAST PERC VACUUM/ROTN 09/02/2013 left breast COLONOSCOPY 12/02/2022 repeat in 10 years FOOT SURGERY HX Right 10/2021 PAST SURGICAL HISTORY OF WISDOM TEETH SKIN BIOPSY HX FAMILY HISTORY Problem Relation Age of Onset Hypertension Mother Cancer Father Prostate Ca Diabetes Father Stroke Maternal Grandmother Hypertension Maternal Grandmother Cancer Maternal Grandmother SKIN Diabetes Paternal Grandmother Heart Paternal Grandfather Social History Tobacco Use Smoking status: Never Smokeless tobacco: Never Vaping Use Vaping Use: Never used Substance Use Topics Alcohol use: Not Currently Comment: 4 drinks per week Drug use: No Current Outpatient Medications Medication Sig Lactobacillus acidophilus (PROBIOTIC ORAL) Take by mouth. salmon oil/omega-3 fatty acids (SALMON OIL-1000 ORAL) Take by mouth. levothyroxine (LEVOXYL) 75 mcg tablet Take 1 tablet by mouth once daily. Take on empty stomach. For thyroid. clobetasol (TEMOVATE) 0.05 % ointment Apply 1 application to affected area twice daily. TO AFFECTED AREA. fluconazole (DIFLUCAN) 100 mg tablet ascorbic acid, vitamin C, (VITAMIN C) 250 mg tablet Take 250 mg by mouth once daily. (Patient not taking: Reported on 06/15/2023) vit B complex no.12/niacin,B3, (VITAMIN B COMPLEX NO.12-NIACIN ORAL) Take by mouth. cholecalciferol (VITAMIN D3) 5,000 unit tab Take 5,000 Units by mouth once daily. (Patient not taking: Reported on 06/15/2023) DAILY MULTIVITAMIN TAB Take one(1) tablet daily. (Patient not taking: Reported on 06/15/2023) No current facility-administered medications for this visit. Allergies As of Date: 06/15/2023 Allergen Noted Reaction AMOXICILLIN 12/17/2008 Rash Fully Assessed 06/15/2023 REVIEW OF SYSTEMS Expanded ROS: N/A Allergies and current medication updated:Yes EXAM: BP 94/60 Wt 151 lb 3.2 oz (68.6kg) LMP 01/24/2019 GENERAL: pleasant, female in no apparent distress HEENT: Normocephalic and atraumatic NECK: full range of motion CHEST: Normal inspiratory effort PELVIC: Hypopigmentation near posterior fourchette and along perineum with erythema over bilateral labia majora. Normal vaginal tissue NEURO: exam grossly non-focal EXTREMITIES: normal ASSESSMENT AND PLAN: Encounter Diagnosis ICD-10-CM 1. Vaginal pain R10.2 BACTERIAL VAGINOSIS NAAT MEME/TRICHOMONAS NAAT 2. Vulvar pruritus L29.2 Exam c/w known lichen sclerosus. Check BV, yeast. Not using Clobetasol cream regularly at this time. Restart Clobetasol and RTO 6 weeks to re evaluation. If not improved, recommend vulvar biopsy. Lise Downey, Medical Decision Making: Problems: Low: Acute, uncomplicated illness or injury Moderate: 1+ chronic illnesses with change Data: Unique test(s) ordered: 1 Risk: Low: Low risk from testing/treatment Medical Decision Making Level: 3 - Low [facility] 03-07-2023 Miscellaneous Notes Patient has been identified by name and date of : Yes Requested Prescriptions Pending Prescriptions Disp Refills levothyroxine (LEVOXYL) 75 mcg tablet 90 tablet 1 Sig: Take 1 tablet by mouth once daily. Take on empty stomach. For thyroid. RX INSTRUCTIONS: Patient aware RX will be sent to pharmacy. No need to notify patient. icomplyse documented in this encounter [facility] 12-01-2022 Miscellaneous Notes Called and spoke to pharmacist, script was transferred to [facility] and they have the medication. Nanci with [facility]. 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 CoLyte was ordered but they do not have it. Can GoLytly be substituted? Please review and advise. Rita Floyd LPN documented in this encounter [facility] 11-24-2022 Note HNO ID: [id number] Author: Melissa Tomas LPN Service: ? Author Type: ? Type: Progress Notes Filed: 11/24/2022 12:59 PM Note Text: Patient presents for Shingrix vaccine. Denies any problems at this time. Tolerated injection well. Melissa Tomas LPN [facility] 11-24-2022 History of Present illness Narrative Patient presents for Shingrix vaccine. Denies any problems at this time. Tolerated injection well. Melissa Tomas LPN documented in this encounter [facility] 11-21-2022 Miscellaneous Notes Frontback message sent to pt notifying her that lab orders have been faxed within [employer] to [facility]. If issues pt to update office. Donna Garcia Ma documented in this encounter [facility] 10-17-2022 Miscellaneous Notes Spoke with pt gave information provided. Pt voices understanding. Please inform patient that her thyroid ultrasound shows 1 thyroid nodule left inferior lobe of the thyroid. It is borderline in size since it is 1.1 cm. Would recommend recheck thyroid ultrasound in 6-12 months to make sure this isn't growing Wai Velazquez DO documented in this encounter [facility] 10-17-2022 History of Present illness Narrative Radiology Service Progress Note PATIENT NAME: Luiza Horton DATE OF SERVICE: October 17, 2022 TIME: 9:05 AM PATIENT IDENTITY VERIFICATION COMPLETED USING TWO (2) IDENTIFIERS: Name and Date of confirmed by patient verbally. FALL SCREENING: Has the patient had 2 falls in the last year or 1 fall with injury or currently using an Ambulatory Assistive Device (Walker, Cane, Wheelchair, Crutches, etc.)? No PATIENT GENDER DATA: Female. status: : No status: NO. PATIENT RELEVANT IMPLANT DATA REVIEWED: Not Applicable RADIOLOGY DEPARTMENT: Bone Density PERIPHERAL IV DATA: Not applicable SIGNED BY: RT Leigha(R) October 17, 2022 9:05 AM documented in this encounter [facility] 10-13-2022 Miscellaneous Notes October 14, 2022 PID: [id number] Luiza Horton [address] [place] [address] Dear Ms. Horton, We are pleased to inform you that the results of your recent breast imaging exam on 10/13/2022 are normal. Your mammogram demonstrates that you have dense breast tissue, which could hide abnormalities. Dense breast tissue, in and of itself, is a relatively common condition. Therefore, this information is not provided to cause undue concern; rather, it is to raise your awareness and promote discussion with your health care provider regarding the presence of dense breast tissue in addition to other risk factors. Early detection of cancer is very important. We also understand recommendations regarding breast cancer screening are controversial. Please discuss with your primary care provider which strategy is best for you and whether a mammogram is right for you. Your imaging studies and report will be kept on file at [facility] as part of your permanent medical record and are available for your continuing care. Thank you for allowing us to help in meeting your health care needs. Sincerely, Dr. Velasco Interpreting Radiologist [facility] (Normal over 40) documented in this encounter [facility] 10-13-2022 History of Present illness Narrative Radiology Service Progress Note PATIENT NAME: Luiza Horton DATE OF SERVICE: October 13, 2022 TIME: 10:29 AM PATIENT IDENTITY VERIFICATION COMPLETED USING TWO (2) IDENTIFIERS: Name and Date of confirmed by patient verbally. FALL SCREENING: Has the patient had 2 falls in the last year or 1 fall with injury or currently using an Ambulatory Assistive Device (Walker, Cane, Wheelchair, Crutches, etc.)? No PATIENT GENDER DATA: Female. status: : No status: NO. PATIENT RELEVANT IMPLANT DATA REVIEWED: Not Applicable RADIOLOGY DEPARTMENT: Mammography PERIPHERAL IV DATA: Not applicable SIGNED BY: RT Berta(R) October 13, 2022 10:29 AM documented in this encounter [facility] 10-13-2022 History of Present illness Narrative Radiology Service Progress Note PATIENT NAME: Luiza Horton DATE OF SERVICE: October 13, 2022 TIME: 10:57 AM PATIENT IDENTITY VERIFICATION COMPLETED USING TWO (2) IDENTIFIERS: Name and Date of confirmed by patient verbally. FALL SCREENING: Has the patient had 2 falls in the last year or 1 fall with injury or currently using an Ambulatory Assistive Device (Walker, Cane, Wheelchair, Crutches, etc.)? No PATIENT GENDER DATA: Female. status: : No status: NO. PATIENT RELEVANT IMPLANT DATA REVIEWED: Not Applicable RADIOLOGY DEPARTMENT: Ultrasound PERIPHERAL IV DATA: Not applicable SIGNED BY: Nanci Waters RDMS RVT October 13, 2022 10:57 AM documented in this encounter [facility] 09-14-2022 Miscellaneous Notes The following approved medication requests have been transmitted electronically. Requested Prescriptions Signed Prescriptions Disp Refills levothyroxine (LEVOXYL) 75 mcg tablet 90 tablet 1 Sig: Take 1 tablet by mouth once daily. Take on empty stomach. For thyroid. Authorizing Provider: WAI VELAZQUEZ DO TC to patient who verbalizes understanding of providers message. Pt is agreeable to increase levothyroxine dosage and is asking for a new script to be sent to [facility] in [place]. Please advise. Thank you. PITO Marte Please inform patient that her TSH is still elevated and her thyroglobulin and thyroid peroxidase levels are slightly elevated. Would like her to still complete the thyroid US which was previously ordered as well as increase her dose of levothyroxine to 75 mcg daily and recheck thyroid labs in 6-8 weeks. Wai Velazquez DO documented in this encounter [facility] 09-09-2022 Miscellaneous Notes Addended by: WAI VELAZQUEZ on: 09/09/2022 12:13 PM Modules accepted: Orders documented in this encounter [facility] 09-09-2022 Instructions Wai Velazquez DO - 09/09/2022 8:13 AM EST Selenium 200 mg a day Vitamin D3 2,000 international unit(s) a day Iodine Low inflammatory diet/auto immune diet documented in this encounter [facility] 09-09-2022 History of Present illness Narrative CC: Luiza Horton is a 52 year old female who presents to the office for physical HPI: Recently diagnosed in May with elevated TSH at >10 and was started on levothyroxine 50 mcg a day in the morning. Did have TSH only rechecked and now down to 2.59. didn't have other thyroid labs checked. Thought that her thyroid concerns were the cause of her lip/tongue swelling. Was seen by ENT and had normal lyme titer and tested for some food allergies which were also all normal. Hasn't had recent episode- no new other symptoms Also has had normal lipid levels and glucose levels. Otherwise has always been healthy, never on medications. Eats overall well and regularly walks for exercise. PAST MEDICAL HISTORY Diagnosis Date Bunionette of left foot 03/09/2018 Bunionette of right foot 03/09/2018 Hallux valgus (acquired), unspecified foot 03/09/2018 Hypothyroidism Papanicolaou smear of cervix with atypical squamous cells of undetermined significance (ASC-US) 2000 Paps since normal Tinea unguium 03/09/2018 PAST SURGICAL HISTORY Procedure Laterality Date BX BREAST PERC VACUUM/ROTN 09/02/2013 left breast FOOT SURGERY HX Right 10/2021 PAST SURGICAL HISTORY OF WISDOM TEETH Social History: Social History Tobacco Use Smoking status: Never Smokeless tobacco: Never Vaping Use Vaping Use: Never used Substance Use Topics Alcohol use: Yes Alcohol/week: 17.5 standard drinks Types: 7 Glasses of Wine (5oz) per week Comment: moderately Drug use: No FAMILY HISTORY Problem Relation Age of Onset Hypertension Mother Cancer Father Prostate Ca Diabetes Father Stroke Maternal Grandmother Hypertension Maternal Grandmother Cancer Maternal Grandmother SKIN Diabetes Paternal Grandmother Heart Paternal Grandfather Current Outpatient prescriptions: fluconazole (DIFLUCAN) 100 mg tablet ascorbic acid, vitamin C, (VITAMIN C) 250 mg tablet Take 250 mg by mouth once daily. vit B complex no.12/niacin,B3, (VITAMIN B COMPLEX NO.12-NIACIN ORAL) Take by mouth. cholecalciferol (VITAMIN D-3) 5,000 unit tab Take 5,000 Units by mouth once daily. levothyroxine (SYNTHROID) 50 mcg tablet clobetasol (TEMOVATE) 0.05 % ointment Apply 1 application to affected area twice daily. TO AFFECTED AREA. DAILY MULTIVITAMIN TAB Take one(1) tablet daily. Allergies: ALLERGIES Allergen Reactions Amoxicillin Rash ROS: See HPI PE: 09/09/22 0749 BP: 90/60 Pulse: 64 Resp: 16 Temp: 36.3 C (97.3 F) TempSrc: Right Tympanic Weight: 68.5 kg (151 lb) Height: 174 cm (5' 8.5 ) Gen: A&O, NAD, non-toxic appearing, Pleasant, cooperative HEENT: NT/AC, PERRLA, EOMs intact b/l, nares clear and patent b/l, pharynx without erythema, exudate or lesions. Uvula midline. EACs without erythema or debris. TMs pearly temple with intact landmarks b/l. Neck: supple, No cervical LAD, + non tender symmetric thyromegaly, no carotid bruits CV: RRR, normal S1 and S2, no murmurs, no gallops, no rubs, Pulses 2+ and symmetric in UE and LE b/l Lungs: normal respiratory effort, CTA b/l, no wheezing or rhonchi or rales Abd: soft, NT, ND, +BS, no hepatosplenomegaly MS: FROM all 4 extremities Neuro: CN II-XII intact b/l, strength 5/5 b/l UE and LE, DTRs 2/4 UE and LE, sensation intact. Skin: warm, dry, intact, No rashes or lesions on exposed skin. Scattered nevi and angiomas No edema, normal pulses ASSESSMENT/PLAN: 1. Well adult exam - ICD9: V70.0, ICD10: Z00.00 (primary diagnosis) - Counseled on healthy diet and regular exercise - Calcium intake with supplements or by diet of 1000 mg/day for under 50, 1188-5592 mg/day for 50+ 2. Hypothyroidism, acquired - ICD9: 244.9, ICD10: E03.9 - Instructed patient on importance of taking on an empty stomach either first thing in the morning or at bedtime. - check TSH, free T4, and Free T3 today Check thyroid US - continue current dose of Synthroid 0.050 mg Stable - Behavioral intervention and - Pharmacological intervention - T4 FREE/FREE THYROX - T3 FREE BLD - TSH BLD - THYROID PEROXIDASE ANTIBODY BLOOD - THYROGLOBULIN AB - US THYROID/PARATHYROID - C-REACTIVE PROTEIN (CRP) 3. 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 Screening for osteoporosis - ICD9: V82.81, ICD10: Z13.820 - DXA-AXIAL SKELETON 5. Screening for colon cancer - ICD9: V76.51, ICD10: Z12.11 She is willing to complete colonoscopy - COLONOSCOPY SCREENING Wai Velazquez DO To ER if develops chest pain, shortness of breath, or severe worsening of symptoms. Discussed risks, benefits, alternatives, and potential side effects of medications. Patient expressed understanding and agreed with the plan. 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 Luiza Horton is a 52 year old female who presents for concerns regarding vaginal and vulvar irritation for the past few months. Patient states she has a burning and irritated sensation right at the opening of the vagina and on the backside of the vagina. Patient states she has not sexually active with her so cannot comment on any pain with intercourse. Patient denies any vaginal odors or discharge, concerns for STDs or history of STDs. Patient denies any vaginal lesions that she is aware of. [facility] infection which culture came back negative and her symptoms did not improve. Patient denies any dysuria. Patient offers no other concerns at this time. 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 History Comments: Sexual Activity: Yes; Male Contraception: Vasectomy PAST MEDICAL HISTORY Diagnosis Date Bunionette of left foot 03/09/2018 Bunionette of right foot 03/09/2018 Hallux valgus (acquired), unspecified foot 03/09/2018 Papanicolaou smear of cervix with atypical squamous cells of undetermined significance (ASC-US) 2000 Paps since normal Tinea unguium 03/09/2018 PAST SURGICAL HISTORY Procedure Laterality Date BX BREAST PERC VACUUM/ROTN 09/02/2013 left breast FOOT SURGERY HX Right 10/2021 PAST SURGICAL HISTORY OF WISDOM TEETH FAMILY HISTORY Problem Relation Age of Onset Hypertension Mother Cancer Father Prostate Ca Diabetes Father Stroke Maternal Grandmother Hypertension Maternal Grandmother Cancer Maternal Grandmother SKIN Diabetes Paternal Grandmother Heart Paternal Grandfather Social History Tobacco Use Smoking status: Never Smokeless tobacco: Never Vaping Use Vaping Use: Never used Substance Use Topics Alcohol use: Yes Alcohol/week: 17.5 standard drinks Types: 7 Glasses of Wine (5oz) per week Comment: moderately Drug use: No Current Outpatient Medications Medication Sig levothyroxine (SYNTHROID) 50 mcg tablet DAILY MULTIVITAMIN TAB Take one(1) tablet daily. No current facility-administered medications for this visit. Allergies As of Date: 06/28/2022 Allergen Noted Reaction AMOXICILLIN 12/17/2008 Rash Fully Assessed 06/28/2022 REVIEW OF SYSTEMS Abdomen: no pain Bladder: no dysuria . Expanded ROS: GENERAL: Negative for fever Allergies and current medication updated:Yes EXAM: Ht 5' 8.5 (1.74m) Wt 156 lb (70.8kg) LMP 01/24/2019 BMI 23.37 kg/(m^2). GENERAL: pleasant, female in no apparent distress HEENT: Normocephalic and atraumatic NECK: full range of motion DERMATOLOGY: without lesions PELVIC: Areas of hypopigmentation erythema at the posterior fourchette of the vagina extending superior midway up the vaginal orifice. Small amount of hyperpigmentation extending to the perineum. No ulcerations no masses. Likely consistent with lichen sclerosis. NEURO: alert and oriented x3,exam grossly non-focal EXTREMITIES: normal ASSESSMENT AND PLAN: Encounter Diagnosis ICD-10-CM 1. Acute vulvitis N76.2 2. Lichen sclerosus et atrophicus L90.0 clobetasol (TEMOVATE) 0.05 % ointment 3. Reviewed lichen sclerosus. We discussed treatment with clobetasol. We discussed avoiding vulvar irritants and vulvar hygiene was reviewed. I will see the patient back in approximately 6 to 8 weeks for her annual exam and at that point we will decide if vulvar biopsy is indicated if she has no resolution. All questions were answered. Patient understands the plan of care. She will use the clobetasol twice daily x6 weeks and then taper down to only using once to twice weekly Medical Decision Making: Problems: Low: Acute, uncomplicated illness or injury Risk: Moderate: Drug management Medical Decision Making Level: 3 - Low Nicole Moya MD documented in this encounter [facility] 05-24-2022 Instructions Nanci Veliz APRN.[facility] - 05/24/2022 10:42 AM EDT VAGINAL YEAST INFECTION What causes a yeast infection? A yeast infection is caused by several different fungi that normally grow in the body. (Yeast is a kind of fungus). A change in the chemical balance in the vagina allows the fungus to grow too rapidly and cause symptoms. Yeast infections most often occur in a woman's vagina. Yeast infections can occur in other parts of the body and in men. Though uncomfortable, yeast infections are not serious and can be cured. What are the symptoms of a yeast infection? Common symptoms: Intense vaginal itching Thick, odorless discharge (might resemble cottage cheese) Less common symptoms: Sore vagina Lower abdominal pain Vaginal rash Burning during urination Painful sex Why do yeast infections occur? All of the reasons why yeast infections occur are not yet understood. What is known is that conditions that usually control fungus can change, allowing the fungus to grow rapidly. Some factors that might cause yeast infections include: control pills Poor nutrition Antibiotic treatment Lack of sleep Diabetes Stress HIV\AIDS Can yeast infections recur? Yes. Yeast infections often recur. Some women find that they get yeast infections frequently. Do I need to see a doctor if I think I have a yeast infection? Vaginal discharges have several different causes. If you are fairly certain that you have a yeast infection, you can treat yourself. See your health care provider promptly if the symptoms do not improve. Creams and suppositories can be purchased from a drugstore and used to treat the infection. It's important to follow all of the directions on the product label. Sometimes yeast infections are treated with medicines taken by the mouth. These must be ordered by your health care provider. How can I help prevent yeast infections? Wear loose clothing made from natural fibers (cotton, linen, silk). Avoid wearing pantyhose, tights, or leggings. Avoid wearing tight pants. Don't douche. (Douching can kill bacteria that control fungus.) Limit use of feminine deodorant. Limit use of deodorant tampons or pads. Change out of wet clothing, especially bathing suits, as soon as you can. Avoid frequent hot tub baths. Wash underwear in hot water. Eat a well-balanced diet. Eat yogurt. Use acidophilus tablets. If you have diabetes, keep your blood sugar level as close to normal as possible. What if I have frequent yeast infections? See your health care provider and: Get a blood sugar test for diabetes Get tested for HIV/AIDS Copyright 1861-3849 [facility]. All rights reserved. This information is provided by the [facility] and is not intended to replace the medical advice of your doctor or health care provider. Please consult your health care provider for advice about a specific medical condition. For additional written health information, please contact the Health Information Center at the [facility] or toll-free extension [phone]. This document was last reviewed on: 2004 index#[id number] documented in this encounter [facility] 05-24-2022 History of Present illness Narrative This note was created using [employer]. Subjective Luiza Horton is a 52 year old female. 52 year old female with no PMH presents for swelling of tongue and lips. Acute onset one week ago States her tongue felt tingling and swollen. She states at that time she was at another residence and thought maybe I was allergic She brings a picture with her (lips are swollen), but the lip swelling has improved. States that her tongue seems to be swollen and discolored. States she is also having vaginal itch and discharge. Denies fever or chills. Denies sx. Denies abdominal pain. Denies N/V/D Denies malaise or fatigue Denies recent ATB usage. The history is provided by the patient. No assistant speech language pathologist was used. Mouth/Lip Problem This is a new problem. The current episode started in the past 7 days. The problem occurs constantly. The problem has been waxing and waning. Pertinent negatives include no abdominal pain, anorexia, arthralgias, change in bowel habit, chest pain, chills, congestion, coughing, diaphoresis, fatigue, fever, headaches, joint swelling, myalgias, nausea, neck pain, numbness, rash, sore throat, swollen glands, urinary symptoms, vertigo, visual change, vomiting or weakness. Nothing aggravates the symptoms. She has tried nothing for the symptoms. The treatment provided no relief. PAST MEDICAL HISTORY Diagnosis Date Bunionette of left foot 03/09/2018 Bunionette of right foot 03/09/2018 Hallux valgus (acquired), unspecified foot 03/09/2018 Papanicolaou smear of cervix with atypical squamous cells of undetermined significance (ASC-US) 2000 Paps since normal Tinea unguium 03/09/2018 PAST SURGICAL HISTORY Procedure Laterality Date BX BREAST PERC VACUUM/ROTN 09/02/13 left breast PAST SURGICAL HISTORY OF WISDOM TEETH ALLERGIES Amoxicillin MEDICATIONS DAILY MULTIVITAMIN TAB Take one(1) tablet daily. fluconazole (DIFLUCAN) 150 mg tablet Take 1 tablet by mouth once daily for 1 day. FAMILY HISTORY Problem Relation Age of Onset Hypertension Mother Cancer Father Prostate Ca Diabetes Father Stroke Maternal Grandmother Hypertension Maternal Grandmother Cancer Maternal Grandmother SKIN Diabetes Paternal Grandmother Heart Paternal Grandfather Social History Tobacco Use Smoking status: Never Smokeless tobacco: Never Vaping Use Vaping Use: Never used Substance Use Topics Alcohol use: Yes Alcohol/week: 17.5 standard drinks Types: 7 Glasses of Wine (5oz) per week Comment: moderately Drug use: No Review of Systems Constitutional: Negative for chills, diaphoresis, fatigue and fever. HENT: Negative for congestion and sore throat. Lip swelling and itchiness Eyes: Negative for pain, discharge, redness and itching. Respiratory: Negative for apnea, cough, choking and chest tightness. Cardiovascular: Negative for chest pain, palpitations and leg swelling. Gastrointestinal: Negative for abdominal pain, anorexia, change in bowel habit, diarrhea, nausea and vomiting. Genitourinary: Positive for vaginal discharge. Negative for difficulty urinating, dysuria, frequency and urgency. Musculoskeletal: Negative for arthralgias, joint swelling, myalgias and neck pain. Skin: Negative for color change, pallor and rash. Allergic/Immunologic: Negative for environmental allergies, food allergies and immunocompromised state. Neurological: Negative for dizziness, vertigo, facial asymmetry, weakness, numbness and headaches. Hematological: Negative for adenopathy. Does not bruise/bleed easily. Psychiatric/Behavioral: Negative for agitation and behavioral problems. Objective BP 100/62 Pulse 60 Temp 36.6 C (97.8 F) Resp 16 Wt 69.9 kg (154 lb) LMP 01/24/2019 SpO2 99% BMI 23.24 kg/m Physical Exam Vitals and nursing note reviewed. Constitutional: General: She is not in acute distress. Appearance: Normal appearance. She is normal weight. She is not ill-appearing, toxic-appearing or diaphoretic. HENT: Head: Normocephalic and atraumatic. Right Ear: Ear canal and external ear normal. Left Ear: Ear canal and external ear normal. Nose: Nose normal. No congestion or rhinorrhea. Mouth/Throat: Mouth: Mucous membranes are moist. Pharynx: Posterior oropharyngeal erythema (marked posterior erytehma) present. No oropharyngeal exudate. Comments: Tongue with mild erythema. No fissure or cracking. Eyes: General: Right eye: No discharge. Left eye: No discharge. Extraocular Movements: Extraocular movements intact. Conjunctiva/sclera: Conjunctivae normal. Pupils: Pupils are equal, round, and reactive to light. Cardiovascular: Rate and Rhythm: Normal rate and regular rhythm. Pulses: Normal pulses. Heart sounds: Normal heart sounds. No murmur heard. No friction rub. Pulmonary: Effort: Pulmonary effort is normal. No respiratory distress. Breath sounds: Normal breath sounds. No stridor. No wheezing, rhonchi or rales. Chest: Chest wall: No tenderness. Abdominal: General: Abdomen is flat. There is no distension. Palpations: Abdomen is soft. There is no mass. Tenderness: There is no abdominal tenderness. There is no right CVA tenderness, left CVA tenderness, guarding or rebound. Hernia: No hernia is present. Genitourinary: Comments: Declines pelvic, request self swab. Musculoskeletal: General: No swelling, tenderness, deformity or signs of injury. Normal range of motion. Cervical back: Normal range of motion and neck supple. No rigidity. Right lower leg: No edema. Left lower leg: No edema. Lymphadenopathy: Cervical: No cervical adenopathy. Skin: General: Skin is warm and dry. Capillary Refill: Capillary refill takes less than 2 seconds. Coloration: Skin is not jaundiced or pale. Findings: No bruising, erythema, lesion or rash. Neurological: General: No focal deficit present. Mental Status: She is alert and oriented to person, place, and time. Cranial Nerves: No cranial nerve deficit. Sensory: No sensory deficit. Motor: No weakness. Coordination: Coordination normal. Gait: Gait normal. Psychiatric: Mood and Affect: Mood normal. Behavior: Behavior normal. Thought Content: Thought content normal. Judgment: Judgment normal. Assessment and Plan ASSESSMENT/PLAN: 1. Vaginal discharge - ICD9: 623.5, ICD10: N89.8 (primary diagnosis) X 1 week Denies concerns for STI Declines pelvic Request self swab and to be treated for yeast. - MEME / TRICHOMONAS AMPLIFICATION X 1 Analucpadmini called in Discussed the need for her to follow up with PCP 2. Tongue discoloration - ICD9: 529.8, ICD10: K14. - FUNGAL SCREEN Nanci Veliz APRN.CNP documented in this encounter [facility] 02-10-2022 Note [facility] HISTORY & PHYSICAL NAME ACCOUNT SEX AGE ADMIT DISCHARGE PT MED. RECORD# NUMBER DATE DATE TYPE SOL, [id number] F 51 11/25/21 2 LUIZA Dalton [id number] ROOM: DATE OF : 68 DICTATING PHYSICIAN: Soumya Linda PREOPERATIVE DIAGNOSIS: Painful Moore's neuroma, right foot. PLANNED PROCEDURE: Excision of painful Moore's neuroma, right foot, 3rs intermetatarsal space. SURGEON: Soumya Linda DPM HISTORY OF PRESENT ILLNESS: The patient is known to me from my private office where she had presented with clinical symptoms consistent with Moore's neuroma of the right third intermetatarsal space. Conservative treatments were tried including cortisone injections, wider shoes, no heels, wearing appropriate shoes, toe spacing, etc. The patient had received no improvement, and states sometimes even the area would wake her up in the middle of the night. Sometimes she had no pain, but she was interested in having surgical removal. The patient had reviewed and signed the consent form. We discussed possibility of continued pain, infection, as well as stump neuroma. The patient wished to move forward with surgery. PAST MEDICAL HISTORY: See chart. MEDICATIONS: See chart. ALLERGIES: Amoxicillin. IMPRESSION/PLAN: Outpatient surgical intervention is planned for the morning of November 26 at [facility]. Dictated By: Soumya Linda DPM 11/25/21 17:23 JOB #: [id number] Transcribed By: am 11/25/21 17:48 Electronically signed by: E-SIGN SOUMYA LINDA 02/04/22 12:15 Page 1 of 2 LUIZA HORTON History & Physical LUIZA HORTON :1970 Update to H&P: [ ] No changes: I have examined the patient and reviewed the H&P and there are no changes. [ ] As previously dictated with the following changes: PHYSICIAN SIGNATURE: TIME: DATE: Page 2 of 2 LUIZA HORTON History & Physical [facility] Diagnosis Acute vulvitis- Primary Vaginitis and vulvovaginitis, unspecified Lichen sclerosus et atrophicus Circumscribed scleroderma [facility] Diagnosis Well adult exam- Primary Routine general medical examination at a health care facility Hypothyroidism, acquired Unspecified hypothyroidism Tongue swelling Swelling, mass, or lump in head and neck Screening for osteoporosis Special screening for osteoporosis Screening for colon cancer Special screening for malignant neoplasms, colon [facility] Diagnosis Hypothyroidism, acquired- Primary Unspecified hypothyroidism [facility] Diagnosis Left thyroid nodule- Primary Nontoxic uninodular goiter [facility] Diagnosis Encounter for immunization- Primary Need for other specified prophylactic vaccination against single bacterial disease [facility] Diagnosis Vulvar dermatitis- Primary Other inflammatory disease of cervix, vagina and vulva Vulvar lesion Other specified noninflammatory disorder of vulva and perineum [facility] Diagnosis Screening for osteoporosis Special screening for osteoporosis [facility] Diagnosis Hypothyroidism, acquired Unspecified hypothyroidism [facility] Diagnosis Encounter for screening mammogram for malignant neoplasm of breast Other screening mammogram [facility] Diagnosis Encounter for gynecological examination (general) (routine) without abnormal findings- Primary Encounter for screening mammogram for breast cancer Lichen sclerosus et atrophicus Circumscribed scleroderma documented in this encounter [facility] for referral (narrative)* Diagnostic Procedure Only (Routine) - Pending Review Specialty Diagnoses / Procedures Referred By Luis blackman Referred To Contact [facility] Diagnoses Hypothyroidism, acquired Procedures US THYROID/PARATHYROID US SOFT TISSUE HEAD & NECK REAL TIME IMGE Wai Maher DO [address] [place] [address] [facility] Referral ID Status Reason Start Date Expiration Date Visits Requested Visits Authorized [id number] Pending Review Auto-Generat ed Referral 2 10/09/2023 1 1 * Outpatient Procedure (Routine) - Pending Review Specialty Diagnoses / Procedures Referred By Luis blackman Referred To Contact [facility] Diagnoses Screening for colon cancer Procedures COLONOSCOPY SCREENING COLONOSCOPY FLX DX W/COLLJ SPEC WHEN PFRMD Wai Velazquez DO [address] [place] [address] [facility] [address] [place] [address] Referral ID Status Reason Start Date Expiration Date Visits Requested Visits Authorized [id number] Pending Review Auto-Generat ed Referral 2 09/09/2023 1 1 [facility] for referral (narrative)* Diagnostic Procedure Only (Routine) - Pending Review Specialty Diagnoses / Procedures Referred By Luis blackman Referred To Contact [facility] Diagnoses Left thyroid nodule Procedures US THYROID/PARATHYROID US SOFT TISSUE HEAD & NECK REAL TIME IMGE Wai Maher DO [address] [place] [address] [facility] Referral ID Status Reason Start Date Expiration Date Visits Requested Visits Authorized [id number] Pending Review Auto-Generat ed Referral 10/17/2023 11/16/2023 1 1 [facility] for referral (narrative)* Diagnostic Procedure Only (Routine) - Closed Specialty Diagnoses / Procedures Referred By Contac t Referred To Contact [facility] Diagnoses Hypothyroidism, acquired Procedures US THYROID/PARATHYROID US SOFT TISSUE HEAD & NECK REAL TIME IMGE Wai Maher DO [address] [place] [address] [place] [address] Referral ID Status Reason Start Date Expiration Date V isits Requested Visits Authorized [id number] Closed Auto-Generate d Referral 10/03/2022 09/24/2023 1 1 [facility] for referral (narrative)* Diagnostic Procedure Only (Routine) - Closed Specialty Diagnoses / Procedures Referred By Contac t Referred To Contact [facility] Diagnoses Encounter for screening mammogram for malignant neoplasm of breast Procedures FRANK SCREENING W TABITHA SCREENING DIGITAL BREAST TOMOSYNTHESIS BI SCREENING MAMMOGRAPHY BI 2-VIEW BREAST INC CAD Nicole Jean MD [address] [address] [facility] [address] [place] [address] Referral ID Status Reason Start Date Expiration Date V isits Requested Visits Authorized [id number] Closed Auto-Generate d Referral 10/13/2022 09/24/2023 1 1 [facility] for referral (narrative)* Diagnostic Procedure Only (Routine) - Authorized Specialty Diagnoses / Procedures Referred By Contac t Referred To Contact [facility] Diagnoses Encounter for screening mammogram for breast cancer Procedures FRANK SCREENING W TABITHA SCREENING DIGITAL BREAST TOMOSYNTHESIS BI SCREENING MAMMOGRAPHY BI 2-VIEW BREAST INC CAD Nicole Jean MD [address] [place] [place] [address] [facility] [address] [place] [address] Referral ID Status Reason Start Date Expiration Date Visits Requested Visits Authorized [id number] Authorized Auto-Generat ed Referral 10/04/2024 1 1 [facility] for visit Narrative* Diagnostic Procedure Only (Routine) - Closed Specialty Diagnoses / Procedures Referred By Luis t Referred To Contact [facility] Diagnoses Encounter for screening mammogram for malignant neoplasm of breast Procedures FRANK SCREENING W TABITHA SCREENING DIGITAL BREAST TOMOSYNTHESIS BI SCREENING MAMMOGRAPHY BI 2-VIEW BREAST INC CAD Nicole Jean MD [address] [place] [address] [facility] [address] [place] [address] Referral ID Status Reason Start Date Expiration Date V isits Requested Visits Authorized [id number] Closed Auto-Generate d Referral 10/13/2022 09/24/2023 1 1 [facility] Summary Purpose Family History No Family History Records FoundNo Family History Records FoundNo Family History Records FoundNo Family History Records Found Advance Directives No Advanced Directives Records FoundNo Advanced Directives Records FoundNo Advanced Directives Records FoundNo Advanced Directives Records Found Additional Source Comments INFORMATION SOURCE (unrecogn ized section and content) DATE CREATED AUTHOR AUTHOR'S ORGANIZ ATION 12/03/2021 [facility] ([place] DATE CREATED AUTHOR AUTHOR'S ORGANIZ ATION 07/28/2022 [facility] DATE CREATED AUTHOR AUTHOR'S ORGANIZ ATION 10/18/2023 [facility] Source Comments (unrecognize d section and content) In the event this informatio n is protected by the Federal Confidentiality of Alcohol and Drug Abuse Patient Records regulations: The Federal rules restrict any use of the information to criminally investigate or prosecute any alcohol or drug abuse patient.[facility] the event this information is protected by the Federal Confidentiality of Alcohol and Drug Abuse Patient Records regulations: The Federal rules restrict any use of the information to criminally investigate or prosecute any alcohol or drug abuse patient.[facility] the event this information is protected by the Federal Confidentiality of Alcohol and Drug Abuse Patient Records regulations: The Federal rules restrict any use of the information to criminally investigate or prosecute any alcohol or drug abuse patient.[facility] the event this information is protected by the Federal Confidentiality of Alcohol and Drug Abuse Patient Records regulations: The Federal rules restrict any use of the information to criminally investigate or prosecute any alcohol or drug abuse patient.[facility] the event this information is protected by the Federal Confidentiality of Alcohol and Drug Abuse Patient Records regulations: The Federal rules restrict any use of the information to criminally investigate or prosecute any alcohol or drug abuse patient.[facility] the event this information is protected by the Federal Confidentiality of Alcohol and Drug Abuse Patient Records regulations: The Federal rules restrict any use of the information to criminally investigate or prosecute any alcohol or drug abuse patient.[facility] the event this information is protected by the Federal Confidentiality of Alcohol and Drug Abuse Patient Records regulations: The Federal rules restrict any use of the information to criminally investigate or prosecute any alcohol or drug abuse patient.[facility] the event this information is protected by the Federal Confidentiality of Alcohol and Drug Abuse Patient Records regulations: The Federal rules restrict any use of the information to criminally investigate or prosecute any alcohol or drug abuse patient.[facility] the event this information is protected by the Federal Confidentiality of Alcohol and Drug Abuse Patient Records regulations: The Federal rules restrict any use of the information to criminally investigate or prosecute any alcohol or drug abuse patient.[facility] the event this information is protected by the Federal Confidentiality of Alcohol and Drug Abuse Patient Records regulations: The Federal rules restrict any use of the information to criminally investigate or prosecute any alcohol or drug abuse patient.[facility] the event this information is protected by the Federal Confidentiality of Alcohol and Drug Abuse Patient Records regulations: The Federal rules restrict any use of the information to criminally investigate or prosecute any alcohol or drug abuse patient.[facility] the event this information is protected by the Federal Confidentiality of Alcohol and Drug Abuse Patient Records regulations: The Federal rules restrict any use of the information to criminally investigate or prosecute any alcohol or drug abuse patient.[facility] the event this information is protected by the Federal Confidentiality of Alcohol and Drug Abuse Patient Records regulations: The Federal rules restrict any use of the information to criminally investigate or prosecute any alcohol or drug abuse patient.[facility] Hospital[facility] the event this information is protected by the Federal Confidentiality of Alcohol and Drug Abuse Patient Records regulations: The Federal rules restrict any use of the information to criminally investigate or prosecute any alcohol or drug abuse patient.[facility] Hospital[facility] the event this information is protected by the Federal Confidentiality of Alcohol and Drug Abuse Patient Records regulations: The Federal rules restrict any use of the information to criminally investigate or prosecute any alcohol or drug abuse patient.[facility] Hospital[facility] the event this information is protected by the Federal Confidentiality of Alcohol and Drug Abuse Patient Records regulations: The Federal rules restrict any use of the information to criminally investigate or prosecute any alcohol or drug abuse patient.[facility] Reason for Visit (unrecogniz ed section and content) Specialty Diagnoses / Procedures Referred By Contac t Referred To Contact [facility] / [facility] Diagnoses Routine general medical examination at a health care facility swelling of tongue and lips Procedures OFFICE/OUTPATIENT ESTABLISHED MOD MDM 30-39 MIN EST SAME DAY Self, MD VelizNanci gamez, [employer]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 [address] [place] [address] Referral ID Status Reason Start Date Expiration Date Visits Re quested Visits Authorized [id number] Closed 05/24/2022 09/24/2022 1 1 Reason Comments Vaginal Problem Specialty Diagnoses / Procedures Referred By Contac t 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 To 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 Diagnoses Vaginal discomfort vaginal discomfort concerns, overdue preventive care-mychart request Procedures OFFICE/OUTPATIENT ESTABLISHED HIGH MDM 40-54 MIN EST WHI PATIENT Self Nicole Jean MD [address] [place] [address] Referral ID Status Reason Start Date Expiration Date Visits Re quested Visits Authorized [id number] Closed 06/28/2022 09/24/2022 1 1 Reason Comments Establish Care Specialty Diagnoses / Procedures Referred By Contac t Referred To Contact Family Medicine / FAMILY MEDICINE Diagnoses Wellness examination to establish-verbally informed by clinical, hay to sched Procedures OFFICE/OUTPATIENT ESTABLISHED MOD MDM 30-39 MIN 4C EXCEPTION Self Wai Velazquez, DO [address] [place] [address] Referral ID Status Reason Start Date Expiration Date Visits Re quested Visits Authorized [id number] Closed 09/09/2022 09/24/2022 1 1 Reason Comments Results Reason Comments Results Reason Comments Imm/Inj Specialty Diagnoses / Procedures Referred By Contac t Referred To Contact Internal Medicine / FAMILY MEDICINE Diagnoses Need for shingles vaccine [place] nurse 2nd shingles Vaccine Procedures OFFICE/OUTPATIENT ESTABLISHED MOD MDM 30-39 MIN NURSE Wai Velazquez Nurse, Ms [address] [place] [address] Referral ID Status Reason Start Date Expiration Date Visits Re quested Visits Authorized [id number] Closed 11/23/2022 09/24/2023 1 1 Reason Comments Medication Problem Orders Reason Comments Refill Request Reason Comments Medication Follow-up Specialty Diagnoses / Procedures Referred By Contac t Referred To Contact Radiology / RADIO BONE DENSITY [facility] Diagnoses Screening for osteoporosis Dx: Screening for osteoporosis [Z13.820] Procedures DXA BONE DENSITY STUDY 1/> SITES AXIAL SKEL [id number] BONE DENSITY ADULT 225 Wai Velazquez Radio Bone Density [facility] [address] [place] [address] Referral ID Status Reason Start Date Expiration Date Visits Re quested Visits Authorized [id number] Closed 10/17/2022 09/24/2023 1 1 Reason Comments Radiology US Specialty Diagnoses / Procedures Referred By Contac t Referred To Contact [facility] Diagnoses Hypothyroidism, acquired Procedures US THYROID/PARATHYROID US SOFT TISSUE HEAD & NECK REAL TIME IMGE DOCM Wai Velazquez Dalton, DO [address] [place] [address] [place] [address] Referral ID Status Reason Start Date Expiration Date V isits Requested Visits Authorized [id number] Closed Auto-Generate d Referral 10/03/2022 09/24/2023 1 1 Reason Comments Yearly Exam Care Teams (unrecognized sec tion and content) Project Construction Assistant Manager Relationship Specialty Start Date End Date Wai Velazquez PCP - General 09/09/22 Project Construction Assistant Manager Relationship Specialty Start Date End Date Wai Velazquez PCP - General 09/09/22 Project Construction Assistant Manager Relationship Specialty Start Date End Date Wai Velazquez PCP - General 09/09/22 Project Construction Assistant Manager Relationship Specialty Start Date End Date Wai Velazquez PCP - General 09/09/22 Project Construction Assistant Manager Relationship Specialty Start Date End Date Wai Velazquez, DO [address] [place] [address] PCP - General Family Medicine 11/10/22 Project Construction Assistant Manager Relationship Specialty Start Date End Date aWi Velazquez, DO [address] [place] [address] PCP - General Family Medicine 11/10/22 Project Construction Assistant Manager Relationship Specialty Start Date End Date Wai Velazquez, DO [address] [place] [address] PCP - General Family Medicine 11/10/22 Project Construction Assistant Manager Relationship Specialty Start Date End Date Wai Velazquez, DO [address] [place] [address] PCP - General Family Medicine 11/10/22 Project Construction Assistant Manager Relationship Specialty Start Date End Date VelazquezWai garnettDO [address] [place] [address] PCP - General Family Medicine 11/10/22 Project Construction Assistant Manager Relationship Specialty Start Date End Date VelazquezWai garnett Dalton PCP - General 09/09/22 11/09/22 Project Construction Assistant Manager Relationship Specialty Start Date End Date Wai Velazquez Dalton PCP - General 09/09/22 11/09/22 Project Construction Assistant Manager Relationship Specialty Start Date End Date VelazquezWai garnett Dalton PCP - General 09/09/22 11/09/22 Project Construction Assistant Manager Relationship Specialty Start Date End Date Wai VelazquezDO [address] [place], [place] [id number] PCP - General Family Medicine 11/10/22 FOR RECORDS PERTAINING TO PATIENTS WHO ARE OR HAVE BEEN ENROLLED IN A CHEMICAL DEPENDENCY/SUBSTANCEABUSE PROGRAM, SOME INFORMATION MAY BE OMITTED. This clinical summary was aggregated from multiple sources. Caution should be exercised in using it in the provision of clinical care. This summary normalizes information from multiple sources, and as a consequence, information in this document may materially change the coding, format and clinical context of patient data. In addition, data may be omitted in some cases. CLINICAL DECISIONS SHOULD BE BASED ON THE PRIMARY CLINICAL RECORDS. [facility] [employer] [facility]. provides no warranty or guarantee of the accuracy or completeness of information in this document.
[2023-10-25 14:47] LABS: T4 Free Direct 0.93 ng/dL (0.76-1.46); Thyroid Stim Hormone (TSH) 2.48 uIU/mL (0.358-3.74)
== END | disposition home or self-care (01) ==
LOC: US 13:50
PROVIDERS: PCP Student in an Organized Health Care Education/Training Program; Referring Provider Student in an Organized Health Care Education/Training Program; Visit Provider Student in an Organized Health Care Education/Training Program
DX: E04.1 Nontoxic single thyroid nodule (principal); E03.9 Hypothyroidism, unspecified
CPT/HCPCS: 36415; 76536; 84439; 84443; 84480

== ENCOUNTER → 2025-02-11 | Outpatient (CLI) | payer OTHER, SELFPAY ==
[2025-02-11 10:05] LABS: Hematocrit 40.1 % (37-47); Hemoglobin 13.5 g/dL (12.0-15.0); Mean Corp Hgb Conc 33.7 g/dL (32-36); Mean Corpuscular Hgb 31.5 pg (27.0-32.0); Mean Corpuscular Volume 93.5 fL (81-99); Mean Platelet Vol. 9.5 fl (6.2-12.0); Platelet Count 305 K/mm3 (150-450); RBC Distribution Width CV 12.5 % (11.6-14.6); RBC Distribution Width SD 42.8 fl (35.1-43.9); Red Blood Count 4.29 M/mm3 (4.2-5.4); White Blood Count 6.7 K/mm3 (4.4-11.0)
[2025-02-11 10:35] LABS: ALB/GLOB Ratio 1.7 RATIO (0.9-2.4); AST(SGOT) 23 U/L (<=31); Alanine Aminotransfer ALT/SGPT 22 U/L (<=34); Albumin, Serum 4.7 g/dL (3.5-5.0); Alkaline Phosphatase 78 U/L (35-104); Anion Gap 11 (5-15); BUN 13 mg/dL (4-19); BUN/Creat Ratio 15.4 RATIO (10-20); Calcium,Total 9.5 mg/dL (7.6-11.0); Carbon Dioxide 25.6 mmol/L (21.0-32.0); Chloride 103 mmol/L (98-108); Cholesterol 203 mg/dL (<=200); Creatinine, Serum 0.85 mg/dL (0.70-1.20); EST Glomerular Filtration Rate 80 (>60); Globulin 2.8 g/dL (2.2-4.2); Glucose 96 mg/dL (70-99); High Density Lipoprotein 67 mg/dL; Low Density Lipoprotein Calc. 124 mg/dL; Protein, Total 7.5 g/dL (5.9-8.4); Sodium Level 139 mmol/L (133-145); Total Bilirubin 0.64 mg/dL (0.00-1.30); Triglycerides 62 mg/dL; Very Low Density Lipoprotein 12 mg/dL (5-40); Vitamin D,25 Hydroxy 31.9 ng/mL (30-100); cholesterol:hdl ratio screen 3.03
== END | disposition home or self-care (01) ==
PROVIDERS: PCP Student in an Organized Health Care Education/Training Program; Referring Provider Student in an Organized Health Care Education/Training Program; Visit Provider Student in an Organized Health Care Education/Training Program
DX: Z00.00 Encounter for general adult medical examination without abnormal findings (principal); Z13.21 Encounter for screening for nutritional disorder; Z13.220 Encounter for screening for lipoid disorders; E03.9 Hypothyroidism, unspecified
CPT/HCPCS: 36415; 80053; 80061; 82306; 84439; 84443; 85027